=== PATIENT | female | born 1955 | race Hispanic/Latino ===

== ENCOUNTER → 2024-08-01 | Outpatient (CLI) | payer MEDICARE ==
--- NOTE | 2024-08-01 16:31 | HMCIMG ---
MR SHOULDER LEFT WO HISTORY: Left shoulder arthritis COMPARISON: None TECHNIQUE: MRI of the left shoulder was performed utilizing multiple pulse sequences in axial, coronal and sagittal planes. Patient was not given contrast through intravenous route. FINDINGS: Subchondral cyst formations are seen in the humeral head. Hypertrophic degenerative changes are seen of the acromioclavicular joint. There is downward sloping of acromion in a medial to lateral direction encroaching upon the rotator cuff tendon and muscles. There is rotator cuff tendinosis. The glenoid labrum is intact. Bicipital tendon is seen within its groove. Small joint effusion is seen. Tiny amount of fluid is seen in the subacromial-subdeltoid bursa complex related to small bursitis. IMPRESSION: 1. Rotator cuff tendinosis. Mild bursitis with small joint effusion. RAMOS.
== END | disposition home or self-care (01) ==
LOC: RAH 14:33
PROVIDERS: ATTEND Family Medicine
DX: M19.012 Primary osteoarthritis, left shoulder (principal); M75.112 Incomplete rotator cuff tear or rupture of left shoulder, not specified as traumatic; M25.412 Effusion, left shoulder; M75.52 Bursitis of left shoulder
CPT/HCPCS: 73221